=== PATIENT | male | born 1990 ===

== ENCOUNTER → 2017-12-27 19:14 | Outpatient (REF) | payer OTHER, SELFPAY ==
[2017-12-27 19:38] LABS: Hemoglobin A1C% w Est Avg Glu 5.2 % (4.0-6.0)
[2017-12-27 20:09] LABS: C-Reactive Protein Quant < 0.5 mg/dL (<1.0)
[2017-12-27 20:19] LABS: Cortisol Random 11.9 ug/dL
[2017-12-31 13:30] LABS: Homocysteine 14.4 umol/L (< 11.4)
[2018-01-01 16:47] LABS: Albumin 5.1 g/dL (3.6-5.1); Sex Hormone Binding Globulin 22 nmol/L (10-50); Testosterone, Bioavailable 47.1 ng/dL (110.0-575.0); Testosterone, Total 131 ng/dL (250-1100); Testosterone,Free 20.3 pg/mL (46.0-224.0)
== END ==
LOC: LAB 19:14
PROVIDERS: Visit Provider Family Medicine
DX: R53.83 Other fatigue (principal)
CPT/HCPCS: 82040; 82533; 83036; 83090; 84270; 84403; 86140

== ENCOUNTER → 2018-07-12 00:13 | Outpatient (REF) | payer OTHER, SELFPAY ==
[2018-07-12 05:08] LABS: Folate 7.2 ng/mL (2.76-20.0); Vitamin B12 694 pg/mL (239-931)
[2018-07-14 11:03] LABS: Homocysteine 14.7 umol/L (< 11.4)
[2018-07-15 19:45] LABS: Methylmalonic Acid 163 nmol/L (87-318)
[2018-07-15 20:50] LABS: Testosterone Free 13.8 pg/mL (35.0-155.0); Testosterone Total 87 ng/dL (250-1100)
== END ==
LOC: LAB 00:13
PROVIDERS: Visit Provider Family Medicine
DX: R78.89 Finding of other specified substances, not normally found in blood (principal); E71.120 Methylmalonic acidemia
CPT/HCPCS: 36415; 82607; 82746; 83090; 83921; 84402; 84403